=== PATIENT | male | born 1945 | race Caucasian/White ===

== ENCOUNTER 2021-08-16 04:36 | Emergency (ER) | payer MEDICARE ==
[2021-08-16 05:33] LABS: ESTIMATED GFR 89 mL/min (>60); TROPONIN I HIGH SENSITIVITY 11.5 pg/mL (<=60.3)
== END 2021-08-16 06:46 | disposition home or self-care (01) ==
LOC: JP.ED 04:36
DX: R07.89 Other chest pain (principal); Z20.822 Contact with and (suspected) exposure to COVID-19
CPT/HCPCS: 36415; 71046; 71046-26; 80053; 84484; 85025; 85379; 86140; 93005; 93010; 99283; 99285-25; U0002